=== PATIENT | male | born 1960 | race Caucasian/White ===

== ENCOUNTER → 2024-07-11 11:38 | Outpatient (REF) | payer OTHER, MEDICARE, SELFPAY | LOC: HWCARD 11:38 | PROVIDERS: ATTENDING PHYSICIAN Student in an Organized Health Care Education/Training Program; FAMILY PHYSICIAN Family Medicine | DX: Z01.818 Encounter for other preprocedural examination (principal) | CPT/HCPCS: 93005 ==